=== PATIENT | female | born 1960 | race Caucasian/White ===

== ENCOUNTER → 2017-08-02 | Outpatient (CLI) | payer OTHER ==
[~2017-08-02] MED LIST: ASPI1TAB83 PO; LISI40TA PO; LPT/40 PO; MULT-67 PO; OMEGCAP2 PO; ROPI1TAB PO; TAMO20TA9 PO
--- NOTE | 2017-08-06 13:36 | MAMMOGRAPHY REPORT ---
BILATERAL DIGITAL SCREENING MAMMOGRAM TOMOSYNTHESIS WITH CAD: 08/02/2017 CLINICAL HISTORY: Asymptomatic. Personal history of breast cancer. TECHNIQUE: Breast tomosynthesis in addition to standard 2D mammography was performed. Current study was also evaluated with a Computer Aided Detection (CAD) system. COMPARISON: Comparison is made to exams dated: 06/19/2016 mammogram, 05/27/2015 mammogram, 4 mammogram, 05/08/2013 mammogram, 04/11/2012 mammogram - [facility], and 05/17/2011 m ammogram - [facility]. BREAST COMPOSITION: The tissue of both breasts is almost entirely fatty. FINDINGS: No suspicious masses, calcifications, or areas of architectural distortion are noted in ei ther breast. There has been no significant interval change compared to prior exams. Again noted are post surgical changes in the right upper outer quadrant from lumpectomy, including a round circumscri bed 4 cm mass at the lumpectomy bed which is not significantly changed and likely represents a postsu rgical seroma/hematoma. Coarse benign dystrophic calcifications at the lumpectomy bed are also again noted. Other scattered bilateral benign-appearing calcifications are not significantly changed. Mi ld diffuse right breast skin thickening is stable. Benign oil cysts are again noted within the left upper outer quadrant. IMPRESSION: ACR BI-RADS CATEGORY 2: BENIGN There is no mammographic evidence of malignancy. A 1 year screening mammogram is recommended. The pa tient will receive written notification of the results. Approximately 10% of breast cancers are not detected with mammography. A negative mammographic report should not delay biopsy if a clinically suggestive mass is present. Rosa M Narvaez M.D. ah/:08/02/2017 16:25:14 Dean Of Education: [employer](R)(M), [facility] letter sent: Normal 1/2 BI-RADS Code: ACR BI-RADS Category 2: Benign
== END | disposition home or self-care (01) ==
LOC: C.MAMM 15:53
PROVIDERS: ATTEND Internal Medicine Hematology & Oncology
DX: Z12.31 Encounter for screening mammogram for malignant neoplasm of breast (principal); C50.911 Malignant neoplasm of unspecified site of right female breast